=== PATIENT | female | born 1985 | race Two or more races ===

== ENCOUNTER 2024-10-27 23:03 | Emergency (ER) | payer OTHER ==
[~2024-10-27] VITALS: Ht 180.3 cm; Wt 99.8 kg
[2024-10-28] MEDS ORDERED: HYDROCODONE/CHLORPHEN P-STIREX 5 ML ML PO STA (01:11)
[2024-10-28 01:29] LABS: BASO % 0.8 % (0.1-1.2); EOS % 3.2 % (0.7-7.0); HEMATOCRIT 38.8 % (34.1-44.9); HEMOGLOBIN 12.5 g/dL (11.2-15.7); LYMPH # 3.17 (1.18-3.74); LYMPH % 33.7 % (19.3-53.1); MONO % 7.4 % (4.7-12.5); NEUT # 5.15 (1.56-6.13); NEUT % 54.7 % (34.0-71.1); PLATELET COUNT 258 K/uL (163-369); RED BLOOD COUNT 4.81 M/uL (3.93-5.22); RED CELL DISTRIBUTION WIDTH 14.4 % (11.6-14.4)
[2024-10-28 02:04] LABS: COVID-19 AG NEGATIVE (NEGATIVE); INFLUENZA A AG NEGATIVE (NEGATIVE); INFLUENZA B AG NEGATIVE (NEGATIVE)
== END 2024-10-28 02:15 | disposition home or self-care (01) ==
LOC: ER 23:03
DX: J06.9 Acute upper respiratory infection, unspecified (principal); Z20.822 Contact with and (suspected) exposure to COVID-19